=== PATIENT | female | born 1940 | race Caucasian/White ===

== ENCOUNTER 2021-12-26 15:48 | Emergency (ER) | payer MEDICARE, MEDICAID, SELFPAY ==
--- NOTE | ~2021-12-26 | XR_ITS ---
EXAMINATION: XR CHEST CLINICAL INFORMATION: Altered mental status. COMPARISON: 12/30/2019 chest radiograph. TECHNIQUE: Frontal view of the chest was obtained. FINDINGS: No significant abnormality is noted involving the heart, lungs, mediastinum, bony thorax or soft tissues. Small to moderate hiatal hernia without significant change. XR/XR chest 1V IMPRESSION: No acute cardiopulmonary process.
--- NOTE | ~2021-12-26 | CT_ITS ---
EXAMINATION: CT HEAD WITHOUT CONTRAST CLINICAL INFORMATION: Altered mental status COMPARISON: CT head 12/30/2019 TECHNIQUE: Contiguous axial imaging was performed from the skull base to vertex without intravenous administration of contrast. Coronal and sagittal reformatted images are performed at the CT scanner. [This CT examination was performed using dose optimization techniques as appropriate, variously including the following: *Automated exposure control *Adjustment of mA and/or kV according to patient size (this includes techniques or standardized protocols for targeted exams where dose is matched to indication/reason for exam; i.e. extremities or head) *Use of iterative reconstruction technique] DLP: 735 mGy-cm. FINDINGS: There is no evidence of acute intracranial hemorrhage or territorial infarction. No abnormal mass-effect or midline shift is seen. Braun to white matter differentiation is well preserved. No extra-axial fluid collections are identified. There is generalized global volume loss. There is moderate prominence of the ventricles and the sulci . There is moderate hypodensity of the periventricular white matter due to chronic small vessel ischemic disease. There are vascular calcifications of the internal carotid arteries bilaterally. There is no osseous abnormality. The mastoid air cells and visualized portions of the paranasal sinuses are well-aerated. CT/CT head/brain wo IV con IMPRESSION: No acute intracranial pathology.
[2021-12-26 15:58] VITALS: BP 112/49; BP 126/45; PULSE 62; PULSE 63; O2SAT 97; BMI 18.8
--- NOTE | 2021-12-26 16:00 | ED.GENADULT ---
HPI - General Adult General Chief complaint: General Medical <DEE Yancey - Last Filed: 12/26/21 21:43> Stated complaint: Hypotension <DEE Yancey Last Filed: 12/26/21 21:43> Time Seen by Provider: 12/26/21 15:51 <DEE Yancey Last Filed: 12/26/21 21:43> Source: patient and EMS <DEE Yancey Last Filed: 12/26/21 21:43> Mode of arrival: EMS <DEE Yancey Last Filed: 12/26/21 21:43> Limitations: altered mental status (Baseline dementia) <DEE Yancey Last Filed: 12/26/21 21:43> History of Present Illness HPI narrative: 81-year-old female with medical history of aortic valve stenosis, CHF, HLD, psychotic disorder, depression, anxiety, insomnia, HTN, dementia, presenting to ED from [facility] for reported increased lethargy, generalized weakness, decreased responsiveness and noted hypotension 84/62 [employer]. Called facility & spoke to patient's nurse who states her baseline is very confused, minimally conversational, denies reported fall or decreased p.o. intake. Unable to obtain history from patient due to baseline mental status <DEE Yancey - Last Filed: 12/26/21 21:43> Onset (ago): hour(s) <DEE Yancey - Last Filed: 12/26/21 21:43> Related Data Allergies/adverse reactions: Allergies Allergy/AdvReac Type Severity Reaction Status Date / Time ibuprofen [From MOTRIN] Allergy Unknown UNKNOWN Unverified 01/12/20 15:22 sulfamethoxazole Allergy Unknown UNKNOWN Unverified 01/12/20 15:22 [From BACTRIM] trimethoprim [From BACTRIM] Allergy Unknown UNKNOWN Unverified 01/12/20 15:22 <DEE Yancey Last Filed: 12/26/21 21:43> Review of Systems Review of Systems: Constitutional: No Fever, + Fatigue, + hypotension Neuro: + Weakness, + decreased responsiveness ROS limited secondary to patient's baseline mental status <DEE Yancey Last Filed: 12/26/21 21:43> Yes all other systems are reviewed and are negative <DEE Yancey - Last Filed: 12/26/21 21:43> Constitutional: Constitutional: Reports as per HPI <DEE Yancey - Last Filed: 12/26/21 21:43> [facility] Past Medical History Attestation statement: The following information was validated with the patient. <DEE Yancey - Last Filed: 12/26/21 21:43> Social History Social History: Social History Advance Directives: Yes Advance Directives on File: Yes Advance Directives Date on File: 12/26/21 <DEE Yancey - Last Filed: 12/26/21 21:43> Physical Exam ED Vital Signs: Vital Signs - 24 hr 12/26/21 15:58 12/26/21 18:55 12/26/21 20:12 Temperature 98.4 F 98.6 F Pulse Rate 63 61 64 Respiratory Rate 16 17 Blood Pressure 126/45 L 121/40 L 111/49 L Pulse Oximetry 97 98 98 Oxygen Delivery Method Room Air Room Air Room Air BMI result Body Mass Index 18.8 <DEE Yancey - Last Filed: 12/26/21 21:43> Vital Signs - 24 hr 12/26/21 15:58 12/26/21 18:55 12/26/21 20:12 Temperature 98.4 F 98.6 F Pulse Rate 63 61 64 Respiratory Rate 16 17 Blood Pressure 126/45 L 121/40 L 111/49 L Pulse Oximetry 97 98 98 Oxygen Delivery Method Room Air Room Air Room Air BMI result Body Mass Index 18.8 <DEE Boyle - Last Filed: 12/26/21 22:12> Const Other: Awake and alert, responsive to questions, A&O x1 <DEE Yancey - Last Filed: 12/26/21 21:43> General: cooperative, no acute distress, alert and awake <DEE Yancey Last Filed: 12/26/21 21:43> Orientation/consciousness: oriented to place <DEE Yancey Last Filed: 12/26/21 21:43> Limitations: no limitations <DEE Yancey - Last Filed: 12/26/21 21:43> HENMT Head: Yes normal to inspection, Yes atraumatic, No Marie's sign and No raccoon eyes <Amy Makilatesha [facility] Last Filed: 12/26/21 21:43> Ears: hearing grossly normal bilaterally <Amy Acevedo [facility] Last Filed: 12/26/21 21:43> General nose exam: Normal external nose present <Amy Acevedo [facility] Last Filed: 12/26/21 21:43> Face and sinus: Yes normal facial exam <Amy Acevedo [facility] Last Filed: 12/26/21 21:43> Eyes General: appearance normal, both eyes and all related structures <Amy Acevedo [facility] Last Filed: 12/26/21 21:43> Pupils: Equal, round and reactive pupils present <Amy Acevedo [facility] Last Filed: 12/26/21 21:43> EOM: EOMs intact bilaterally <Amy Acevedo [facility] Last Filed: 12/26/21 21:43> Neck Neck: Yes normal visual inspection and Yes no meningeal signs <Amy Acevedo [facility] Last Filed: 12/26/21 21:43> Resp Effort & Inspection: normal respiratory effort and no respiratory distress <Amy Acevedo [facility] Last Filed: 12/26/21 21:43> Auscultation: clear to auscultation bilaterally, no rales, no rhonchi and no wheezes <Amy Acevedo [facility] Last Filed: 12/26/21 21:43> Cardio Rate: regular rate <Amy Acevedo [facility] Last Filed: 12/26/21 21:43> Heart sounds: S1 normal heart sound present and S2 normal heart sound present <Amy Acevedo [facility] Last Filed: 12/26/21 21:43> GI Inspection: Yes normal to inspection <Amy Acevedo [facility] Last Filed: 12/26/21 21:43> Palpation (GI): Soft to palpation, nontender, no guarding and not rigid <Amy Acevedo [facility] - Last Filed: 12/26/21 21:43> General: Yes no CVA tenderness <DEE Yancey - Last Filed: 12/26/21 21:43> Back/Spine/Pelvis Back: no CVA tenderness <DEE Yancey - Last Filed: 12/26/21 21:43> Skin Rashes: no rashes <DEE Yancey - Last Filed: 12/26/21 21:43> Wounds: no wounds <DEE Yancey - Last Filed: 12/26/21 21:43> Neuro Other: Baseline dementia <DEE Yancey - Last Filed: 12/26/21 21:43> General: oriented to place, tone normal and no meningeal signs <DEE Yancey - Last Filed: 12/26/21 21:43> Cranial nerves: Yes Equal, round and reactive pupils present <DEE Yancey - Last Filed: 12/26/21 21:43> Extrem General: Yes normal to inspection <DEE Yancey - Last Filed: 12/26/21 21:43> Course Course Course Narrative: -1756--no leukocytosis. H&H at patient's baseline. BUN chronically elevated. Troponin 209.9 > EKG without STEMI, no available priors to compare will obtain 3 hour repeat and re-evaluate. Patient denies CP (although unreliable) > case was discussed with Cardiology Dr. Osei with no further recommendations at this time XR chest 1V IMPRESSION: No acute cardiopulmonary process. CT head/brain wo IV con IMPRESSION: No acute intracranial pathology. -UA negative ? -on re-evaluation patient is sleeping comfortably, in no apparent distress. > repeat EKG unchanged -UA negative -0--ED care transferred to [facility] Lam pending repeat troponin and dispo per results <DEE Yancey - Last Filed: 12/26/21 21:43> -1756--no leukocytosis. H&H at patient's baseline. BUN chronically elevated. Troponin 209.9 > EKG without STEMI, no available priors to compare will obtain 3 hour repeat and re-evaluate. Patient denies CP (although unreliable) > case was discussed with Cardiology Dr. Osei with no further recommendations at this time XR chest 1V IMPRESSION: No acute cardiopulmonary process. CT head/brain wo IV con IMPRESSION: No acute intracranial pathology. -UA negative ? -on re-evaluation patient is sleeping comfortably, in no apparent distress. > repeat EKG unchanged -UA negative -2199--ED care transferred to DEE Lam pending repeat troponin and dispo per results 2211: Patient's repeat troponin decreased. Patient cleared for discharge back to [facility] <DEE Boyle - Last Filed: 12/26/21 22:12> Medical Decision Making MDM Narrative Medical decision making narrative: 81-year-old female with medical history of aortic valve stenosis, CHF, HLD, psychotic disorder, depression, anxiety, insomnia, HTN, dementia, presenting to ED from [facility] for reported increased lethargy, generalized weakness, decreased responsiveness and noted hypotension 84/62 [employer]. On exam normotensive, awake and alert, responsive to questions, baseline dementia, no evidence of trauma, lungs CTA, abdomen soft/nontender. Rule out metabolic/infectious etiologies vs ICH pathology Plan: EKG, labs, UA, CXR, head CT, IVF, re-evaluate <DEE Yancey - Last Filed: 12/26/21 21:43> Medical Records Medical records reviewed: Yes I reviewed the patient's medical records. <DEE Yancey - Last Filed: 12/26/21 21:43> Lab Data Lab results reviewed: Yes I reviewed the patient's lab results. <DEE Yancey - Last Filed: 12/26/21 21:43> Result diagrams: : 12/26/21 17:10 12/26/21 17:01 <DEE Yancey - Last Filed: 12/26/21 21:43> Labs: Lab Results 12/26/21 12/26/21 12/26/21 Range/Units 17:01 17:01 17:01 WBC (4.8-10.8) X10*3/uL RBC (4.20-5.50) X10*6/uL Hgb (12.0-16.0) g/dl Hct (37.0-47.0) % MCV (80.0-98.0) fL MCH (27.0-33.0) pg MCHC (31.0-35.0) g/dl RDW (11.0-16.0) % Plt Count (160-400) X10*3/uL MPV (9.4-12.3) fL Immature Gran % (Auto) (0.0-0.4) % Neut % (Auto) (45-73) % Lymph % (Auto) (20-40) % [place] % (Auto) (2-11) % Eos % (Auto) (0-4) % Baso % (Auto) (0-2) % Lymph # (Auto) (1.2-4.9) X10*3/uL [place] # (Auto) (0.1-1.2) X10*3/uL Eos # (Auto) (0.0-0.4) X10*3/uL Baso # (Auto) (0.0-0.2) X10*3/uL Abs Immat Gran (auto) (0.00-0.03) X10*3/uL Absolute Neuts (auto) (2.0-8.3) x10*3/uL Absolute Nucleated RBC (0.0-0.012) X10*3/uL Nucleated RBC % (auto) (0.0-0.2) /100WBC PT 10.0 (10.0-13.1) SEC INR 0.9 (0.9-1.1) Sodium 142 (135-145) mmol/L Potassium 4.8 (3.3-5.1) mmol/L Chloride 108 (96-108) mmol/L Carbon Dioxide 23 (22-29) mmol/L Anion Gap 16 (12-20) BUN 19 H (9-16) mg/dL Creatinine 0.72 (0.5-1.4) mg/dL Estim Creat Clear Calc 43.1 Estimated GFR > 60 Random Glucose 76 (60-115) mg/dL Calcium 8.5 (8.4-10.2) mg/dL Magnesium 1.7 (1.6-2.6) mg/dL Total Bilirubin 0.3 (0.0-1.0) mg/dL Direct Bilirubin < 0.2 (0.0-0.5) mg/dL AST 20 (5-31) U/L ALT 8 (0-31) U/L Alkaline Phosphatase 53 (39-117) U/L Ammonia (13-55) umol/L Troponin I High Sens (<3.5-17.0) ng/L Total Protein 6.4 L (6.5-8.0) g/dL Albumin 3.0 L (3.5-5.0) g/dL Lipase 12 (8-78) U/L Urine Color Urine Appearance Urine pH (5.0-9.0) Ur Specific [place] (1.005-1.025) Urine Protein (Neg-Trace) mg/dL Urine Glucose (UA) (Negative) mg/dL Urine Ketones (Negative) mg/dL Urine Blood (Negative) Urine Nitrite (Negative) Ur Leukocyte Esterase (Negative) COVID-19 (KEO) Negative (Negative) COVID-19 Clin Com See Note 12/26/21 12/26/21 12/26/21 Range/Units 17:10 17:10 17:10 WBC 4.8 (4.8-10.8) X10*3/uL RBC 3.71 L (4.20-5.50) X10*6/uL Hgb 11.1 L (12.0-16.0) g/dl Hct 34.5 L (37.0-47.0) % MCV 93.0 (80.0-98.0) fL MCH 29.9 (27.0-33.0) pg MCHC 32.2 (31.0-35.0) g/dl RDW 13.0 (11.0-16.0) % Plt Count 185 (160-400) X10*3/uL MPV 10.2 (9.4-12.3) fL Immature Gran % (Auto) 0.2 (0.0-0.4) % Neut % (Auto) 57.8 (45-73) % Lymph % (Auto) 25.7 (20-40) % [place] % (Auto) 9.1 (2-11) % Eos % (Auto) 6.8 H (0-4) % Baso % (Auto) 0.4 (0-2) % Lymph # (Auto) 1.2 (1.2-4.9) X10*3/uL [place] # (Auto) 0.4 (0.1-1.2) X10*3/uL Eos # (Auto) 0.3 (0.0-0.4) X10*3/uL Baso # (Auto) 0.0 (0.0-0.2) X10*3/uL Abs Immat Gran (auto) 0.01 (0.00-0.03) X10*3/uL Absolute Neuts (auto) 2.8 (2.0-8.3) x10*3/uL Absolute Nucleated RBC 0.000 (0.0-0.012) X10*3/uL Nucleated RBC % (auto) 0.0 (0.0-0.2) /100WBC PT (10.0-13.1) SEC INR (0.9-1.1) Sodium (135-145) mmol/L Potassium (3.3-5.1) mmol/L Chloride (96-108) mmol/L Carbon Dioxide (22-29) mmol/L Anion Gap (12-20) BUN (9-16) mg/dL Creatinine (0.5-1.4) mg/dL Estim Creat Clear Calc Estimated GFR Random Glucose (60-115) mg/dL Calcium (8.4-10.2) mg/dL Magnesium (1.6-2.6) mg/dL Total Bilirubin (0.0-1.0) mg/dL Direct Bilirubin (0.0-0.5) mg/dL AST (5-31) U/L ALT (0-31) U/L Alkaline Phosphatase (39-117) U/L Ammonia 25 (13-55) umol/L Troponin I High Sens 209.9 H* (<3.5-17.0) ng/L Total Protein (6.5-8.0) g/dL Albumin (3.5-5.0) g/dL Lipase (8-78) U/L Urine Color Urine Appearance Urine pH (5.0-9.0) Ur Specific [place] (1.005-1.025) Urine Protein (Neg-Trace) mg/dL Urine Glucose (UA) (Negative) mg/dL Urine Ketones (Negative) mg/dL Urine Blood (Negative) Urine Nitrite (Negative) Ur Leukocyte Esterase (Negative) COVID-19 (KEO) (Negative) COVID-19 Clin Com 12/26/21 12/26/21 Range/Units 17:52 21:39 WBC (4.8-10.8) X10*3/uL RBC (4.20-5.50) X10*6/uL Hgb (12.0-16.0) g/dl Hct (37.0-47.0) % MCV (80.0-98.0) fL MCH (27.0-33.0) pg MCHC (31.0-35.0) g/dl RDW (11.0-16.0) % Plt Count (160-400) X10*3/uL MPV (9.4-12.3) fL Immature Gran % (Auto) (0.0-0.4) % Neut % (Auto) (45-73) % Lymph % (Auto) (20-40) % [place] % (Auto) (2-11) % Eos % (Auto) (0-4) % Baso % (Auto) (0-2) % Lymph # (Auto) (1.2-4.9) X10*3/uL [place] # (Auto) (0.1-1.2) X10*3/uL Eos # (Auto) (0.0-0.4) X10*3/uL Baso # (Auto) (0.0-0.2) X10*3/uL Abs Immat Gran (auto) (0.00-0.03) X10*3/uL Absolute Neuts (auto) (2.0-8.3) x10*3/uL Absolute Nucleated RBC (0.0-0.012) X10*3/uL Nucleated RBC % (auto) (0.0-0.2) /100WBC PT (10.0-13.1) SEC INR (0.9-1.1) Sodium (135-145) mmol/L Potassium (3.3-5.1) mmol/L Chloride (96-108) mmol/L Carbon Dioxide (22-29) mmol/L Anion Gap (12-20) BUN (9-16) mg/dL Creatinine (0.5-1.4) mg/dL Estim Creat Clear Calc Estimated GFR Random Glucose (60-115) mg/dL Calcium (8.4-10.2) mg/dL Magnesium (1.6-2.6) mg/dL Total Bilirubin (0.0-1.0) mg/dL Direct Bilirubin (0.0-0.5) mg/dL AST (5-31) U/L ALT (0-31) U/L Alkaline Phosphatase (39-117) U/L Ammonia (13-55) umol/L Troponin I High Sens 175.3 H* (<3.5-17.0) ng/L Total Protein (6.5-8.0) g/dL Albumin (3.5-5.0) g/dL Lipase (8-78) U/L Urine Color Straw Urine Appearance Clear Urine pH 7.5 (5.0-9.0) Ur Specific [place] 1.015 (1.005-1.025) Urine Protein Negative (Neg-Trace) mg/dL Urine Glucose (UA) Negative (Negative) mg/dL Urine Ketones Trace (Negative) mg/dL Urine Blood Negative (Negative) Urine Nitrite Negative (Negative) Ur Leukocyte Esterase Negative (Negative) COVID-19 (KEO) (Negative) COVID-19 Clin Com <DEE Yancey - Last Filed: 12/26/21 21:43> Lab Results 12/26/21 12/26/21 12/26/21 Range/Units 17:01 17:01 17:01 WBC (4.8-10.8) X10*3/uL RBC (4.20-5.50) X10*6/uL Hgb (12.0-16.0) g/dl Hct (37.0-47.0) % MCV (80.0-98.0) fL MCH (27.0-33.0) pg MCHC (31.0-35.0) g/dl RDW (11.0-16.0) % Plt Count (160-400) X10*3/uL MPV (9.4-12.3) fL Immature Gran % (Auto) (0.0-0.4) % Neut % (Auto) (45-73) % Lymph % (Auto) (20-40) % [place] % (Auto) (2-11) % Eos % (Auto) (0-4) % Baso % (Auto) (0-2) % Lymph # (Auto) (1.2-4.9) X10*3/uL [place] # (Auto) (0.1-1.2) X10*3/uL Eos # (Auto) (0.0-0.4) X10*3/uL Baso # (Auto) (0.0-0.2) X10*3/uL Abs Immat Gran (auto) (0.00-0.03) X10*3/uL Absolute Neuts (auto) (2.0-8.3) x10*3/uL Absolute Nucleated RBC (0.0-0.012) X10*3/uL Nucleated RBC % (auto) (0.0-0.2) /100WBC PT 10.0 (10.0-13.1) SEC INR 0.9 (0.9-1.1) Sodium 142 (135-145) mmol/L Potassium 4.8 (3.3-5.1) mmol/L Chloride 108 (96-108) mmol/L Carbon Dioxide 23 (22-29) mmol/L Anion Gap 16 (12-20) BUN 19 H (9-16) mg/dL Creatinine 0.72 (0.5-1.4) mg/dL Estim Creat Clear Calc 43.1 Estimated GFR > 60 Random Glucose 76 (60-115) mg/dL Calcium 8.5 (8.4-10.2) mg/dL Magnesium 1.7 (1.6-2.6) mg/dL Total Bilirubin 0.3 (0.0-1.0) mg/dL Direct Bilirubin < 0.2 (0.0-0.5) mg/dL AST 20 (5-31) U/L ALT 8 (0-31) U/L Alkaline Phosphatase 53 (39-117) U/L Ammonia (13-55) umol/L Troponin I High Sens (<3.5-17.0) ng/L Total Protein 6.4 L (6.5-8.0) g/dL Albumin 3.0 L (3.5-5.0) g/dL Lipase 12 (8-78) U/L Urine Color Urine Appearance Urine pH (5.0-9.0) Ur Specific [place] (1.005-1.025) Urine Protein (Neg-Trace) mg/dL Urine Glucose (UA) (Negative) mg/dL Urine Ketones (Negative) mg/dL Urine Blood (Negative) Urine Nitrite (Negative) Ur Leukocyte Esterase (Negative) COVID-19 (KEO) Negative (Negative) COVID-19 Clin Com See Note 12/26/21 12/26/21 12/26/21 Range/Units 17:10 17:10 17:10 WBC 4.8 (4.8-10.8) X10*3/uL RBC 3.71 L (4.20-5.50) X10*6/uL Hgb 11.1 L (12.0-16.0) g/dl Hct 34.5 L (37.0-47.0) % MCV 93.0 (80.0-98.0) fL MCH 29.9 (27.0-33.0) pg MCHC 32.2 (31.0-35.0) g/dl RDW 13.0 (11.0-16.0) % Plt Count 185 (160-400) X10*3/uL MPV 10.2 (9.4-12.3) fL Immature Gran % (Auto) 0.2 (0.0-0.4) % Neut % (Auto) 57.8 (45-73) % Lymph % (Auto) 25.7 (20-40) % [place] % (Auto) 9.1 (2-11) % Eos % (Auto) 6.8 H (0-4) % Baso % (Auto) 0.4 (0-2) % Lymph # (Auto) 1.2 (1.2-4.9) X10*3/uL [place] # (Auto) 0.4 (0.1-1.2) X10*3/uL Eos # (Auto) 0.3 (0.0-0.4) X10*3/uL Baso # (Auto) 0.0 (0.0-0.2) X10*3/uL Abs Immat Gran (auto) 0.01 (0.00-0.03) X10*3/uL Absolute Neuts (auto) 2.8 (2.0-8.3) x10*3/uL Absolute Nucleated RBC 0.000 (0.0-0.012) X10*3/uL Nucleated RBC % (auto) 0.0 (0.0-0.2) /100WBC PT (10.0-13.1) SEC INR (0.9-1.1) Sodium (135-145) mmol/L Potassium (3.3-5.1) mmol/L Chloride (96-108) mmol/L Carbon Dioxide (22-29) mmol/L Anion Gap (12-20) BUN (9-16) mg/dL Creatinine (0.5-1.4) mg/dL Estim Creat Clear Calc Estimated GFR Random Glucose (60-115) mg/dL Calcium (8.4-10.2) mg/dL Magnesium (1.6-2.6) mg/dL Total Bilirubin (0.0-1.0) mg/dL Direct Bilirubin (0.0-0.5) mg/dL AST (5-31) U/L ALT (0-31) U/L Alkaline Phosphatase (39-117) U/L Ammonia 25 (13-55) umol/L Troponin I High Sens 209.9 H* (<3.5-17.0) ng/L Total Protein (6.5-8.0) g/dL Albumin (3.5-5.0) g/dL Lipase (8-78) U/L Urine Color Urine Appearance Urine pH (5.0-9.0) Ur Specific [place] (1.005-1.025) Urine Protein (Neg-Trace) mg/dL Urine Glucose (UA) (Negative) mg/dL Urine Ketones (Negative) mg/dL Urine Blood (Negative) Urine Nitrite (Negative) Ur Leukocyte Esterase (Negative) COVID-19 (KEO) (Negative) COVID-19 Clin Com 12/26/21 12/26/21 Range/Units 17:52 21:39 WBC (4.8-10.8) X10*3/uL RBC (4.20-5.50) X10*6/uL Hgb (12.0-16.0) g/dl Hct (37.0-47.0) % MCV (80.0-98.0) fL MCH (27.0-33.0) pg MCHC (31.0-35.0) g/dl RDW (11.0-16.0) % Plt Count (160-400) X10*3/uL MPV (9.4-12.3) fL Immature Gran % (Auto) (0.0-0.4) % Neut % (Auto) (45-73) % Lymph % (Auto) (20-40) % [place] % (Auto) (2-11) % Eos % (Auto) (0-4) % Baso % (Auto) (0-2) % Lymph # (Auto) (1.2-4.9) X10*3/uL [place] # (Auto) (0.1-1.2) X10*3/uL Eos # (Auto) (0.0-0.4) X10*3/uL Baso # (Auto) (0.0-0.2) X10*3/uL Abs Immat Gran (auto) (0.00-0.03) X10*3/uL Absolute Neuts (auto) (2.0-8.3) x10*3/uL Absolute Nucleated RBC (0.0-0.012) X10*3/uL Nucleated RBC % (auto) (0.0-0.2) /100WBC PT (10.0-13.1) SEC INR (0.9-1.1) Sodium (135-145) mmol/L Potassium (3.3-5.1) mmol/L Chloride (96-108) mmol/L Carbon Dioxide (22-29) mmol/L Anion Gap (12-20) BUN (9-16) mg/dL Creatinine (0.5-1.4) mg/dL Estim Creat Clear Calc Estimated GFR Random Glucose (60-115) mg/dL Calcium (8.4-10.2) mg/dL Magnesium (1.6-2.6) mg/dL Total Bilirubin (0.0-1.0) mg/dL Direct Bilirubin (0.0-0.5) mg/dL AST (5-31) U/L ALT (0-31) U/L Alkaline Phosphatase (39-117) U/L Ammonia (13-55) umol/L Troponin I High Sens 175.3 H* (<3.5-17.0) ng/L Total Protein (6.5-8.0) g/dL Albumin (3.5-5.0) g/dL Lipase (8-78) U/L Urine Color Straw Urine Appearance Clear Urine pH 7.5 (5.0-9.0) Ur Specific [place] 1.015 (1.005-1.025) Urine Protein Negative (Neg-Trace) mg/dL Urine Glucose (UA) Negative (Negative) mg/dL Urine Ketones Trace (Negative) mg/dL Urine Blood Negative (Negative) Urine Nitrite Negative (Negative) Ur Leukocyte Esterase Negative (Negative) COVID-19 (KEO) (Negative) COVID-19 Clin Com <DEE Boyle - Last Filed: 12/26/21 22:12> Discharge Plan Discharge Clinical Impression: Lethargy <DEE Yancey - Last Filed: 12/26/21 21:43> Patient Disposition: Home, Self-Care <DEE Yancey Last Filed: 12/26/21 21:43> Instructions: Fatigue (ED) <DEE Yancey - Last Filed: 12/26/21 21:43> Additional Instructions: Your head CT and chest x-ray were unremarkable. Urine is not infected. Follow up with your primary care provider. Return to the emergency department immediately if your symptoms worsen or if you develop any dizziness, shortness of breath, difficulty breathing, chest pain, blurry vision, loss of vision, nausea, vomiting, abdominal pain, fever, chills, back pain, or any other complaints. <DEE Yancey - Last Filed: 12/26/21 21:43> Referrals: Woodrow Porter MD [Primary Care Provider] - Robin Osei MD [Physician] - <DEE Yancey - Last Filed: 12/26/21 21:43> Print Language: Occitan <DEE Yancey - Last Filed: 12/26/21 21:43>
--- NOTE | 2021-12-26 16:01 | ECG_ITS ---
Test Reason : WEAKNESS Blood Pressure : / mmHG Vent. Rate : 060 BPM Atrial Rate : 060 BPM P-R Int : 138 ms QRS Dur : 088 ms QT Int : 416 ms P-R-T Axes : 000 000 049 degrees QTc Int : 416 ms Normal sinus rhythm Minimal voltage criteria for LVH, may be normal variant ( Sokolow-Gonzalez ) Borderline ECG No previous ECGs available Referred By: Amy Acevedo Electronically Signed By:EDITH MITCHELL
[2021-12-26 17:14] LABS: MANUAL DIFF FLAG NO
[2021-12-26 17:14] LABS: INTERNATIONAL NORM RATIO 0.9 (0.9-1.1)
[2021-12-26 17:16] LABS: Basophils Percent Auto 0.4 % (0-2); Eosinophils Absolute Auto 0.3 X10*3/uL (0.0-0.4); Eosinophils Percent Auto 6.8 % (0-4); Hematocrit 34.5 % (37.0-47.0); Hemoglobin 11.1 g/dl (12.0-16.0); Imm Gran Abs Auto 0.01 X10*3/uL (0.00-0.03); Imm Gran Pct Auto 0.2 % (0.0-0.4); Lymphocytes Absolute Auto 1.2 X10*3/uL (1.2-4.9); Lymphocytes Percent Auto 25.7 % (20-40); Mean Corpuscular HGB Conc 32.2 g/dl (31.0-35.0); Mean Corpuscular Hemoglobin 29.9 pg (27.0-33.0); Mean Platelet Volume 10.2 fL (9.4-12.3); Monocytes Absolute Auto 0.4 X10*3/uL (0.1-1.2); Monocytes Percent Auto 9.1 % (2-11); Neutrophils Absolute Auto 2.8 x10*3/uL (2.0-8.3); Neutrophils Percent Auto 57.8 % (45-73); Platelet Count 185 X10*3/uL (160-400); Red Blood Count 3.71 X10*6/uL (4.20-5.50); White Blood Count 4.8 X10*3/uL (4.8-10.8)
[2021-12-26 17:22] LABS: Ammonia 25 umol/L (13-55)
[2021-12-26 17:23] LABS: COVID-19 Test Negative (Negative); IDNOW Serial# 16C4AD1C
[2021-12-26 17:40] LABS: Alanine Aminotransferase 8 U/L (0-31); Alkaline Phosphatase 53 U/L (39-117); Anion Gap 16 (12-20); Aspartate Amino Transferase 20 U/L (5-31); Bilirubin Direct < 0.2 mg/dL (0.0-0.5); Bilirubin Total 0.3 mg/dL (0.0-1.0); Blood Urea Nitrogen 19 mg/dL (9-16); Calcium 8.5 mg/dL (8.4-10.2); Carbon Dioxide 23 mmol/L (22-29); Chloride 108 mmol/L (96-108); Creatinine Clr Calc Pharmacy 43.1; Estimated Glomerular Filt Rate > 60; Glucose Random 76 mg/dL (60-115); Lipase 12 U/L (8-78); Magnesium 1.7 mg/dL (1.6-2.6); Potassium 4.8 mmol/L (3.3-5.1); Sodium 142 mmol/L (135-145); Total Protein 6.4 g/dL (6.5-8.0)
[2021-12-26 17:42] LABS: Troponin-I High Sensitivity 209.9 ng/L (<3.5-17.0)
[2021-12-26 18:07] LABS: Appearance Urine Clear; Color Urine Straw; Glucose Urine UA Negative (Negative); Leukocyte Esterase Urine Negative (Negative); Nitrite Urine Negative (Negative); PH 7.5 (5.0-9.0); Specific Gravity - Urine 1.015 (1.005-1.025); Urine Blood Negative (Negative); Urine Ketones Trace mg/dL (Negative); Urine Protein Negative (Neg-Trace)
[2021-12-26] MEDS: 0.9 % Sodium Chloride 500 ML 999 ML IV (18:17)
[2021-12-26 18:55] VITALS: BP 121/40; PULSE 61; RESP 16; TEMP 36.9; O2SAT 98
--- NOTE | 2021-12-26 20:10 | ECG_ITS ---
Test Reason : REPEAT Blood Pressure : / mmHG Vent. Rate : 066 BPM Atrial Rate : 066 BPM P-R Int : 148 ms QRS Dur : 090 ms QT Int : 402 ms P-R-T Axes : 073 002 067 degrees QTc Int : 421 ms Normal sinus rhythm Minimal voltage criteria for LVH, may be normal variant ( Sokolow-Gonzalez ) Nonspecific T wave abnormality Abnormal ECG When compared with ECG of 26-DEC-2021 17:07, Nonspecific T wave abnormality is now Present Referred By: Amy Acevedo Electronically Signed By:EDITH MITCHELL
[2021-12-26 20:12] VITALS: BP 111/49; PULSE 64; RESP 17; TEMP 37; O2SAT 98
[2021-12-26 22:11] LABS: Troponin-I High Sensitivity 175.3 ng/L (<3.5-17.0)
--- NOTE | 2021-12-26 22:45 | PC.NURSE ---
I called [facility] to give nurse to nurse report but was unable to get a nurse to accept my phone call. I spoke with someone names Maricel who transferred me to the patients unit but the phone was never answered after three minutes of ringing.
--- NOTE | 2021-12-26 22:56 | PC.NURSE ---
This Us/Pct called [facility] at 2225 and spoke to Leonor for a BlS transfer back to [facility]. Leonor stated they were unable to transfer due to no trucks,will try to pass. At 2335 Leonor called and stated [facility] is able to transfer patient back ETA 20mins.Rn and [employer] Pipe aware
== END 2021-12-26 23:02 | disposition home or self-care (01) ==
PROVIDERS: Physician Assistant; Emergency Provider Emergency Medicine Emergency Medical Services; PCP Family Medicine
DX: R53.83 Other fatigue (principal); I95.9 Hypotension, unspecified; R53.1 Weakness; Z20.822 Contact with and (suspected) exposure to COVID-19; F03.90 Unspecified dementia, unspecified severity, without behavioral disturbance, psychotic disturbance, mood disturbance, and anxiety; I11.0 Hypertensive heart disease with heart failure; I50.9 Heart failure, unspecified
CPT/HCPCS: 36415; 70450; 71045; 80048; 80076; 81003; 82140; 83690; 83735; 84484; 85025; 85610; 87635; 93005; 99285